=== PATIENT | female | born 1965 | race Two or more races ===

== ENCOUNTER 2019-04-29 05:26 | Inpatient (IN) | payer MEDICAID ==
[~2019-04-29] VITALS: Ht 15.7 cm; Wt 32.2 kg
[~2019-04-29 05:26] MED LIST: CARB400T4 PO; DIVA500T54 PO; LEVE500T20 PO
--- NOTE | 2019-04-29 06:15 | NUR ---
RN NOTES PATIENT CAME TO UNIT, AMBULATORY FROM HOME. PATIENT IS ALERT, ORIENTED X 4. BREATHING EVEN AND UNLABORED. NOT IN ANY DISTRESS, ON ROOM AIR. IV LINE STARTED ON L) WRIST G#20. CONSENT SIGNED. ALL NEEDS ATTENDED. WILL ENDORSE TO ONCOMING RN
[2019-04-29] MEDS ORDERED: BACITRACIN 50000 UNITS/VIAL ONE (06:45)
[2019-04-29] MEDS ORDERED: ANESTHESIA TRAY IN PYXIS 1 EA TRAY MC ONE (06:45)
[2019-04-29] MEDS ORDERED: PROPOFOL 100 ML ONE (07:07)
[2019-04-29] MEDS ORDERED: MIDAZOLAM HCL 2 MG/2ML VIAL ONE (07:11)
[2019-04-29] MEDS ORDERED: HYDROMORPHONE INJ 2 MG/ML DISP.SYRIN ONE ×3 (07:11→08:47)
[2019-04-29] MEDS ORDERED: BUPIVACAINE 0.5 % PF 150 MG/30 ML VIAL ONE ×2 (08:08→09:12)
[2019-04-29] MEDS ORDERED: BISACODYL SUPP (10 MG) 10 MG/SUPP.RECT SUPP.RECT RC PRN (09:30)
[2019-04-29] MEDS ORDERED: ACETAMINOPHEN 325 MG TABLET PO PRN (09:30)
[2019-04-29] MEDS ORDERED: DOCUSATE SODIUM 250 MG CAPSULE PO PRN (09:30)
--- NOTE | 2019-04-29 11:00 | NUR ---
ms rn received on bed, awake,alert,oriented x4,s/p left knee surgery w/ dressing dry and intact, will monitor patient.
[2019-04-29] MEDS ORDERED: CARBAMAZEPINE XR 400 MG TAB.SR.12H PO SCH (14:30)
[2019-04-29 16:00] VITALS: BP 103/62
[2019-04-29] MEDS: DIVALPROEX SODIUM 500 MG TABLET.DR PO SCH ×2 (18:43→21:04)
[2019-04-29] MEDS: LEVETIRACETAM (250 MG) 250 MG TABLET PO SCH ×3 (18:43→21:04)
[2019-04-29] MEDS: CARBAMAZEPINE 200 MG TABLET PO SCH (18:44)
[2019-04-29] MEDS: ANCEF 1 GM/50 ML D5W IV SCH ×4 (18:44→22:17)
[2019-04-29] MEDS: IV LR 1000 ML 1,000 ML IV PRN (18:45)
[2019-04-29] MEDS: HYDROMORPHONE 1 MG/1 ML DISP.SYRIN IV PRN (18:48)
--- NOTE | 2019-04-29 19:05 | NUR ---
MS RN NOTE RECEIVED PT IN STABLE CONDITION A/O X4, CURRENTLY WATCHING TV. NO SIGNS OF SOB OR DISTRESS, NO C/O PAIN OR N/V. IV IN L WRIST #20 S/L IN PLACE. ALL CURRENT NEEDS ATTENDED TO. BED LOW, LOCKED, UPPER RAILS UP, AND CALL LIGHT WITHIN REACH. WILL CONT. TO MONITOR.
--- NOTE | 2019-04-29 19:21 | NUR ---
MS RN ON BED,NO DISTRESS NOTED.
[2019-04-29 20:09] VITALS: BP 103/59
--- NOTE | 2019-04-29 21:10 | NUR ---
MS RN NOTE PT REFUSED 2100 DOSE OF KEPPRA, STATES THAT SHE JUST TOOK IT AT 1700.
[2019-04-29] MEDS ORDERED: ZOLPIDEM TARTRATE 5 MG TABLET PO PRN (22:00)
[2019-04-29] MEDS ORDERED: SENNOSIDES 8.6 MG TABLET PO PRN (22:00)
[2019-04-29] MEDS: HYDROCODONE/APAP 5/325MG 1 EACH TABLET PO PRN (23:03)
[2019-04-30] MEDS: HYDROCODONE/APAP 5/325MG 1 EACH TABLET PO PRN ×2 (04:29→08:27)
[2019-04-30] MEDS: IV LR 1000 ML 1,000 ML IV PRN ×2 (05:26→18:48)
--- NOTE | 2019-04-30 06:22 | NUR ---
MS RN NOTE PT REMAINS IN STABLE CONDITION A/O X4, CURRENTLY RESTING IN BED. NO SIGNS OF SOB OR DISTRESS, NO C/O MANAGED W/ MEDICATION NO N/V. SX REMAINS DRY AND INTACT. IV IN L WRIST #20 S/L IN PLACE. ALL CURRENT NEEDS ATTENDED TO. BED LOW, LOCKED, UPPER RAILS UP, AND CALL LIGHT WITHIN REACH. WILL CONT. TO MONITOR AND ENDORSE TO NEXT SHIFT FOR [place].
[2019-04-30 06:28] LABS: BASOPHILS % (AUTO) 0.2 % (0.0-2.0); EOSINOPHILS % (AUTO) 1.6 % (0.0-6.0); HEMATOCRIT 29 % (33-45); HEMOGLOBIN 9.5 g/dL (11.5-14.8); LYMPHOCYTES # (AUTO) 1.9 /CMM (0.8-4.8); LYMPHOCYTES % (AUTO) 39.1 % (20.0-44.0); MEAN CORPUSCULAR HGB CONC 33 g/dl (31.0-36.0); MEAN CORPUSCULAR VOLUME 94 fL (82-100); MONOCYTES # (AUTO) 0.4 /CMM (0.1-1.30); MONOCYTES % (AUTO) 8.6 % (2.0-12.0); NEUTROPHILS # (AUTO) 2.5 /CMM (1.8-8.9); NEUTROPHILS % (AUTO) 50.5 % (43.0-81.0); PLATELET COUNT (AUTO) 131 /CMM (150-450); RED BLOOD CELL COUNT(AUTO) 3.03 MIL/uL (4.0-5.2); WHITE BLOOD COUNT (AUTO) 4.9 K/uL (4.3-11.0)
[2019-04-30 06:33] LABS: CALCIUM, SERUM 7.8 mg/dL (8.5-10.1); CREATININE 0.7 mg/dL (0.6-1.3); MAGNESIUM 1.9 mg/dL (1.8-2.4); PHOSPHORUS 4.3 mg/dL (2.5-4.9); POTASSIUM 4.1 mmol/L (3.5-5.1)
--- NOTE | 2019-04-30 07:30 | NUR ---
MS RN NOTE POWER PLANT OPERATOR SAW PT TAKING AM SEIZURE MEDICATIONS. MEDICATIONS TAKEN AND GIVEN TO PHARM. PT REEDUCATED ABOUT HOSPITAL POLICY. PHARM ALSO NOTIFIED. ENDORSED TO NEXT SHIFT FOR [place].
--- NOTE | 2019-04-30 08:00 | NUR ---
MS SOTOMAYOR AM NOTES RECEIVED PT IN STABLE CONDITION A/O X4, PATIENT TOOK OWN HOME MEDICATIONS. REINFORCED TO PATIENT ABOUT HOSPITAL PROTOCOL. WILL REINFORCE TEACHING TO PATIENT THAT HOME MEDICATIONS WERE BROUGHT TO THE PHARMACY. NO SIGNS OF SOB OR DISTRESS. IV IN L WRIST #20 S/L IN PLACE WITH LR RUNNING AT 100ML/HR. BED LOW, LOCKED, UPPER RAILS UP, AND CALL LIGHT WITHIN REACH. WILL CONTINUE TO MONITOR.
[2019-04-30] MEDS ORDERED: LACO200T2 PO (08:12)
[2019-04-30] MEDS ORDERED: DIVA-78 PO (08:12)
[2019-04-30] MEDS ORDERED: CARB200T PO (08:12)
[2019-04-30] MEDS ORDERED: LEVE1000 PO (08:12)
[2019-04-30 08:15] VITALS: BP 94/58
[2019-04-30] MEDS: ASPIRIN 325 MG TABLET PO SCH (08:27)
[2019-04-30] MEDS ORDERED: FERR325T23 PO (08:31)
[2019-04-30] MEDS: DIVALPROEX SODIUM 500 MG TABLET.DR PO SCH ×4 (09:00→21:41)
[2019-04-30] MEDS ORDERED: CARBAMAZEPINE XR 400 MG TAB.SR.12H PO SCH (09:00)
[2019-04-30] MEDS: LEVETIRACETAM (250 MG) 250 MG TABLET PO SCH ×3 (09:00→21:41)
[2019-04-30] MEDS: CARBAMAZEPINE 200 MG TABLET PO SCH ×3 (09:00→19:10)
--- NOTE | 2019-04-30 09:00 | NUR ---
RN Notes: Patient refused 0900 medications; Patient stated that she took her own medications from home; Explained to patient about hospital protocol on medications from home; Took her medications and sent to pharmacy and explained to patient; Patient was upset, but enforced hospital policy and procedure.
[2019-04-30] MEDS: oxyCODONE/APAP (5/325 MG) 1 UDTAB TABLET PO PRN ×2 (11:55→17:17)
[2019-04-30] MEDS: HYDROMORPHONE 1 MG/1 ML DISP.SYRIN IV PRN ×3 (14:19→22:08)
[2019-04-30 16:00] VITALS: BP 97/55
--- NOTE | 2019-04-30 17:22 | NUR ---
PT INSISTS THAT SHE WANTS ALL OF HER OWN HOME SEIZURE MEDICATIONS TAKEN AT HER USUAL TIME (5PM). REINFORCED TO PATIENT HOSPITAL PROTOCOL ON SCHEDULED ADMINISTRATION OF MEDICATION. NOTIFIED DR. DEL VALLE ABOUT PATIENT'S MEDICATION RECONCILIATION NEEDING TO BE REVIEWED AND DONE.
[2019-04-30] MEDS ORDERED: LEVETIRACETAM SOL (5 ML) 100 MG/ML UDC PO SCH (18:30)
--- NOTE | 2019-04-30 18:38 | NUR ---
PT CHANGED HER MIND AND WANTS HER TEGRETOL 200 MG PO NOW TOGETHER WITH THE REST OF HER MEDS.
[2019-04-30] MEDS: LACOSAMIDE 50 MG TABLET PO SCH ×3 (18:55→21:41)
[2019-04-30] MEDS: FERROUS SULFATE (325 MG) 325 MG/TAB TABLET PO SCH (18:55)
--- NOTE | 2019-04-30 19:10 | NUR ---
MS RN NOTES PATIENT RECEIVED PRN DILAUDID 1MG PER REQUEST; COMPLAINED OF PAIN RATED 10/10; SCHEDULED MEDICATION ALSO GIVEN; PATIENT RESTING IN BED; CALL LIGHT IN REACH.
--- NOTE | 2019-04-30 19:47 | NUR ---
MS RN RECEIVE PT IN BED A/O X3, STABLE AND NOT IN DISTRESS, S/P L TKA DRESSING INTACT NO S/S OF BLEEDING. RESPIRATIONS EVEN AND UNLABORED. WILL CONT TO MTR
[2019-04-30 20:00] VITALS: BP 106/65
[2019-04-30 20:13] VITALS: BP 106/65
--- NOTE | 2019-04-30 22:28 | NUR ---
NON ADMIN NIGHT MED CARLITO, SHADE BENDER DUE AT 2100 REFUSED MED UPON ADMINISTRATION PT CHANGED MIND AND DOESN'T WANT TO TAKE IT. PT VERBALIZED "I JUST TOOK IT EARLIER I DONT WANT IT" DESPITE EXPLAINING RISKS AND BENEFITS. OFFERED 3 TIMES. PT STILL REFUSED. ALL MEDICATION WASTED WITNESSED BY 1 RN. PT A/O X 3
[2019-05-01] MEDS: HYDROMORPHONE 1 MG/1 ML DISP.SYRIN IV PRN ×4 (01:16→09:01)
[2019-05-01] MEDS: IV LR 1000 ML 1,000 ML IV PRN (05:24)
--- NOTE | 2019-05-01 06:17 | NUR ---
MS RN ASLEEP AND EASILY AWAKEN, SLEPT WELL. S/P L TKA DRESSING CLEAN AND INTACT, DRY. NO S/S OF INFECTION, AFEBRILE. MONITORED FOR PAIN, MEDICATED WITH PRN PAIN MED WITH RELIEF. NO S/S OF DISTRESS, NURSING CARE RENDERED, KEPT CLEAN AND DRY AND COMFORTABLE. NEEDS ATTENDED AND ANTICIPATED. SAFETY MEASURES AT ALL TIMES. ENDORSE TO THE NEXT SHIFT
[2019-05-01 06:21] LABS: BASOPHILS % (AUTO) 0.3 % (0.0-2.0); EOSINOPHILS % (AUTO) 1.5 % (0.0-6.0); HEMATOCRIT 30 % (33-45); HEMOGLOBIN 9.9 g/dL (11.5-14.8); LYMPHOCYTES # (AUTO) 1.1 /CMM (0.8-4.8); LYMPHOCYTES % (AUTO) 22.4 % (20.0-44.0); MEAN CORPUSCULAR HGB CONC 34 g/dl (31.0-36.0); MEAN CORPUSCULAR VOLUME 94 fL (82-100); MONOCYTES # (AUTO) 0.6 /CMM (0.1-1.30); MONOCYTES % (AUTO) 11.3 % (2.0-12.0); NEUTROPHILS # (AUTO) 3.2 /CMM (1.8-8.9); NEUTROPHILS % (AUTO) 64.5 % (43.0-81.0); PLATELET COUNT (AUTO) 135 /CMM (150-450); RED BLOOD CELL COUNT(AUTO) 3.13 MIL/uL (4.0-5.2)
[2019-05-01 06:38] LABS: CALCIUM, SERUM 8.3 mg/dL (8.5-10.1); CREATININE 0.5 mg/dL (0.6-1.3); MAGNESIUM 1.9 mg/dL (1.8-2.4); PHOSPHORUS 3.9 mg/dL (2.5-4.9); POTASSIUM 4.3 mmol/L (3.5-5.1)
--- NOTE | 2019-05-01 08:00 | NUR ---
MS RN RECEIVE PT IN BED A/O X3, STABLE AND NOT IN DISTRESS, S/P L TKA DRESSING INTACT NO S/S OF BLEEDING. RESPIRATIONS EVEN AND UNLABORED. PAIN MGT EFFECTIVE. CALL LIGHT PLACED WITHIN REACH.WILL CONT TO MTR
[2019-05-01 08:35] VITALS: BP 108/74
--- NOTE | 2019-05-01 08:42 | NUR ---
Clarified Depakote and Keppra dosage and frequency with the pt -Dr Wooten made aware and carried out orders.
[2019-05-01] MEDS: ASPIRIN 325 MG TABLET PO SCH (08:59)
[2019-05-01] MEDS: LACOSAMIDE 50 MG TABLET PO SCH (08:59)
[2019-05-01] MEDS: CARBAMAZEPINE 200 MG TABLET PO SCH (08:59)
[2019-05-01] MEDS: DIVALPROEX SODIUM 500 MG TABLET.DR PO SCH ×2 (08:59→12:23)
[2019-05-01] MEDS: FERROUS SULFATE (325 MG) 325 MG/TAB TABLET PO SCH (08:59)
[2019-05-01] MEDS ORDERED: LEVETIRACETAM (250 MG) 250 MG TABLET PO SCH (09:00)
[2019-05-01] MEDS: oxyCODONE/APAP (5/325 MG) 1 UDTAB TABLET PO PRN (10:45)
[2019-05-01] MEDS ORDERED: OXYC1TAB8 PO (10:58)
--- NOTE | 2019-05-01 15:00 | NUR ---
DISCHARGED PT HOME VIA PRIVATE CAR WITH HOME HEALTH FOLLOW UP FROM PT'S HEALTH INSURANCE-PER STRATEGY LEAD,[employer].IV H/L REMOVED TO LT WRIST WITH NO BLEEDING NOTED.PT ALREADY MADE AN APPT WITH DR ROSALES THIS MONTH ON Apr.RETURNED PT'S HOME MEDS FROM PHARMACY.DISCHARGED WITH STABLE V/S.ACCOMPANIED BY HER SON.
[2019-05-01] MEDS ORDERED: CARBAMAZEPINE 200 MG TABLET PO SCH (18:00)
== END 2019-05-01 15:05 | disposition home health service (06) | DRG 302 ==
LOC: DS 05:26 → MED 05:49
PROVIDERS: ADMIT Nurse Practitioner Acute Care; ATTEND Nurse Practitioner Acute Care
DX: T84.033A Mechanical loosening of internal left knee prosthetic joint, initial encounter (principal); E83.51 Hypocalcemia; D64.9 Anemia, unspecified; G40.909 Epilepsy, unspecified, not intractable, without status epilepticus; Y83.9 Surgical procedure, unspecified as the cause of abnormal reaction of the patient, or of later complication, without mention of misadventure at the time of the procedure; Y92.89 Other specified places as the place of occurrence of the external cause
CPT/HCPCS: 36415; 80048-TC; 82962-TC; 83735-TC; 84100-TC; 85025-TC; 87081-TC; 97110-TC; 97116-TC; 97530-TC; 97760-TC; G0378; J0690; J1100; J1170; J1200; J1953; J2250; J2405; J2704; J2765; J3490; J7060; J7120